=== PATIENT | female | born 1945 | race Two or more races ===

== ENCOUNTER 2024-04-08 14:06 | Emergency (ER) | payer OTHER ==
[~2024-04-08] VITALS: Ht 162.6 cm; Wt 54.0 kg
[2024-04-08 15:40] LABS: BASOPHILS % (AUTO) 0.4 % (0.0-2.0); EOSINOPHILS # (AUTO) 0.2 K/uL (0.0-0.7); EOSINOPHILS % (AUTO) 1.5 % (0.0-6.0); HEMATOCRIT 40 % (33-45); HEMOGLOBIN 13.5 g/dL (11.5-14.8); LYMPHOCYTES % (AUTO) 9.5 % (20.0-44.0); MEAN CORPUSCULAR HEMOGLOBIN 30 PG (26.0-33.0); MEAN CORPUSCULAR HGB CONC 33 g/dl (31.0-36.0); MEAN CORPUSCULAR VOLUME 89 fL (82-100); MONOCYTES % (AUTO) 9.6 % (2.0-12.0); NEUTROPHILS # (AUTO) 8.2 K/uL (1.8-8.9); PLATELET COUNT (AUTO) 328 K/uL (150-450); RED BLOOD CELL COUNT(AUTO) 4.52 MIL/uL (4.0-5.2); RED CELL DISTRIBUTION WIDTH 15.2 % (11.5-15.0); WHITE BLOOD COUNT (AUTO) 10.3 K/uL (4.3-11.0)
[2024-04-08 15:50] LABS: CALCIUM, SERUM 8.8 mg/dL (8.5-10.1); CARBON DIOXIDE 28 mmol/L (21-32); CHLORIDE 98 mmol/L (98-107); CREATININE 0.8 mg/dL (0.6-1.3); GLUCOSE 86 mg/dL (74-106); POTASSIUM 3.4 mmol/L (3.5-5.1); SODIUM SERUM 135 mmol/L (136-145); UREA NITROGEN, BLOOD 11 mg/dL (7-18)
[2024-04-08 15:51] LABS: INR 1.04 (0.91-1.10); PARTIAL THROMBOPLASTIN TIME 33.6 SEC (24.3-34.3); PROTHROMBIN TIME 10.7 SECS (9.2-11.1)
[2024-04-08 16:00] LABS: ALANINE AMINOTRANSFERASE 27 U/L (12-78); ALBUMIN 3.1 g/dL (3.4-5.0); ALKALINE PHOSPHATASE 64 U/L (46-116); ASPARTATE AMINOTRANSFERASE 22 U/L (15-37); BILIRUBIN,DIRECT 0.2 mg/dL (0.0-0.2); BILIRUBIN,TOTAL 0.9 mg/dL (0.2-1.0); TOTAL PROTEIN, SERUM 7.2 g/dL (6.4-8.2)
[2024-04-08] MEDS: IV NS 0.9% 1,000 ML BAG IV ONE (16:23)
[2024-04-08] MEDS ORDERED: Magnesium 1GM/D5W 100ML PREMIX 100 ML IV ONE (16:40)
[2024-04-08] MEDS: Magnesium 1GM/D5W 100ML PREMIX 200 ML IV ONE (16:46)
[2024-04-08] MEDS ORDERED: ALBUTEROL FS 2.5 MG/3 ML VIAL.NEB ONE (16:53)
[2024-04-08] MEDS ORDERED: IPRATROPIUM NEB FS 0.5 MG/2.5 ML AMPUL.NEB ONE (16:53)
[2024-04-08 17:08] VITALS: O2SAT 99
[2024-04-08] MEDS: ALBUTEROL FS 2.5 MG/3 ML VIAL.NEB NEB ONE (17:08)
[2024-04-08] MEDS: IPRATROPIUM NEB FS 0.5 MG/2.5 ML AMPUL.NEB NEB ONE (17:08)
[2024-04-08] MEDS ORDERED: IOHEXOL-350 100 ML VIAL IV ONE (18:22)
[2024-04-08] MEDS ORDERED: IV NS 0.9% 250 ML IV ONE (18:22)
[2024-04-08 21:54] VITALS: BP 111/56; TEMP 99.2; O2SAT 98
== END 2024-04-08 21:54 | disposition short-term general hospital (02) ==
LOC: ER 14:09
DX: J44.9 Chronic obstructive pulmonary disease, unspecified (principal); R06.02 Shortness of breath; R05.9 Cough, unspecified; M79.10 Myalgia, unspecified site; F32.A Depression, unspecified; Z98.890 Other specified postprocedural states; Z20.822 Contact with and (suspected) exposure to COVID-19; Z88.5 Allergy status to narcotic agent; Z88.2 Allergy status to sulfonamides
CPT/HCPCS: 99291; 96365; 71275; 71045; 87426; 93005; 87804 ×2; 84145; 85025; 80048; 83605 ×2; 80076; 36415; 84484; 85730; 94644; J7030; J7050; J7040; A4223; J3475; Q9967

== ENCOUNTER 2025-09-08 13:45 | Emergency (ER) | payer OTHER ==
[~2025-09-08] VITALS: Ht 160 cm; Wt 49.9 kg
[2025-09-08 14:01] VITALS: TEMP 98.3
[2025-09-08] MEDS: PIPERACILLIN /TAZOBACTAM 3.375 G in IV D5W 50 ML IV ONE (14:30)
[2025-09-08 14:36] LABS: PLATELET COUNT (AUTO) 377 K/uL (150-450); RED BLOOD CELL COUNT(AUTO) 5.18 MIL/uL (4.0-5.2); RED CELL DISTRIBUTION WIDTH 15.4 % (11.5-15.0); WHITE BLOOD COUNT (AUTO) 12.0 K/uL (4.3-11.0)
[2025-09-08] MEDS: VANCOMYCIN 1 GM in IV D5W 250 ML IV ONE (14:50)
[2025-09-08 14:52] LABS: CALCIUM, SERUM 9.3 mg/dL (8.5-10.1); CREATININE 1.0 mg/dL (0.6-1.3); SODIUM SERUM 137 mmol/L (136-145); UREA NITROGEN, BLOOD 23 mg/dL (7-18)
[2025-09-08 14:53] LABS: INR 1.14 (0.91-1.10)
[2025-09-08 15:00] LABS: LACTIC ACID 1.6 mmol/L (0.4-2.0)
[2025-09-08 15:04] LABS: ASPARTATE AMINOTRANSFERASE 23 U/L (15-37); NT-PRO BNP 322 pg/mL (0-125); TOTAL PROTEIN, SERUM 7.7 g/dL (6.4-8.2)
[2025-09-08] MEDS ORDERED: IPRATROPIUM NEB FS 0.5 MG/2.5 ML AMPUL.NEB ONE (16:13)
[2025-09-08] MEDS ORDERED: ALBUTEROL FS 2.5 MG/3 ML VIAL.NEB ONE (16:13)
[2025-09-08 16:15] VITALS: O2SAT 92
[2025-09-08] MEDS: IPRATROPIUM NEB FS 0.5 MG/2.5 ML AMPUL.NEB NEB ONE (16:19)
[2025-09-08] MEDS: ALBUTEROL FS 2.5 MG/3 ML VIAL.NEB NEB ONE (16:19)
[2025-09-08] MEDS ORDERED: Magnesium 1GM/D5W 100ML PREMIX 100 ML IV ONE ×2 (16:28→17:21)
[2025-09-08] MEDS: Magnesium 1GM/D5W 100ML PREMIX 200 ML IV ONE (16:30)
[2025-09-08 17:30] VITALS: O2SAT 93
[2025-09-08 18:45] VITALS: BP 119/67; O2SAT 97
== END 2025-09-08 19:33 | disposition short-term general hospital (02) ==
LOC: ER 13:48
DX: R06.02 Shortness of breath (principal); J44.9 Chronic obstructive pulmonary disease, unspecified; Z88.1 Allergy status to other antibiotic agents; Z88.2 Allergy status to sulfonamides; Z88.5 Allergy status to narcotic agent; Z20.822 Contact with and (suspected) exposure to COVID-19
CPT/HCPCS: 99291; 96365; 96375; 96367; 87426; 99292; 93005; 71045; 85025; 80048; 87040 ×2; 83605; 80076; 85378; 36415; 84484 ×2; 85730; 83880; 94644; J2919; J3373; J2543; J7060; J3475 ×2

== ENCOUNTER 2025-09-28 21:30 | Emergency (ER) | payer OTHER ==
[~2025-09-28] VITALS: Ht 165.1 cm; Wt 49.9 kg
[2025-09-28 21:33] VITALS: TEMP 98.7
[2025-09-28] MEDS: ALBUTEROL FS 2.5 MG/3 ML VIAL.NEB NEB ONE (22:23)
[2025-09-28] MEDS: IPRATROPIUM NEB FS 0.5 MG/2.5 ML AMPUL.NEB NEB ONE (22:23)
[2025-09-28] MEDS ORDERED: IPRATROPIUM NEB FS 0.5 MG/2.5 ML AMPUL.NEB ONE (22:26)
[2025-09-28] MEDS ORDERED: ALBUTEROL FS 2.5 MG/3 ML VIAL.NEB ONE (22:26)
[2025-09-28 22:32] VITALS: O2SAT 100
[2025-09-28 22:47] VITALS: O2SAT 100
[2025-09-28 22:49] VITALS: O2SAT 100
[2025-09-28 23:03] LABS: PLATELET COUNT (AUTO) 258 K/uL (150-450); RED BLOOD CELL COUNT(AUTO) 5.18 MIL/uL (4.0-5.2); RED CELL DISTRIBUTION WIDTH 16.3 % (11.5-15.0); WHITE BLOOD COUNT (AUTO) 11.5 K/uL (4.3-11.0)
[2025-09-28 23:04] VITALS: O2SAT 95
[2025-09-28 23:14] VITALS: O2SAT 100
[2025-09-28 23:16] LABS: CALCIUM, SERUM 9.5 mg/dL (8.5-10.1); CREATININE 0.9 mg/dL (0.6-1.3); SODIUM SERUM 138 mmol/L (136-145); UREA NITROGEN, BLOOD 25 mg/dL (7-18)
[2025-09-28 23:21] LABS: ASPARTATE AMINOTRANSFERASE 23 U/L (15-37); NT-PRO BNP 1054 pg/mL (0-125); TOTAL PROTEIN, SERUM 6.8 g/dL (6.4-8.2)
[2025-09-29 00:24] VITALS: BP 110/47; O2SAT 95
== END 2025-09-29 02:27 | disposition short-term general hospital (02) ==
LOC: ER 21:31
DX: R09.02 Hypoxemia (principal); R06.02 Shortness of breath; R05.9 Cough, unspecified; J44.9 Chronic obstructive pulmonary disease, unspecified; Z88.1 Allergy status to other antibiotic agents; Z88.2 Allergy status to sulfonamides; Z88.5 Allergy status to narcotic agent; Z87.891 Personal history of nicotine dependence; Z20.822 Contact with and (suspected) exposure to COVID-19
CPT/HCPCS: 36415; 71045-TC; 80048-TC; 80076-TC; 83880; 84484-TC; 85025-TC